=== PATIENT | female | born 2000 | race Asian ===

== ENCOUNTER 2021-11-15 08:36 | Emergency (ER) | payer OTHER, SELFPAY ==
[2021-11-15 09:00] VITALS: BP 144/88; PULSE 81; RESP 18; TEMP 36.6; O2SAT 100
--- NOTE | 2021-11-15 09:17 | ED.EAR ---
HPI - Ear Problem General Chief complaint: Ear Stated complaint: Ear Pain Time Seen by Provider: 11/15/21 09:17 Source: patient Mode of arrival: ambulatory Limitations: no limitations History of Present Illness HPI Narrative: 21-year-old female presents with complaint of right ear pain since yesterday. Reports pain getting progressively worse. Reports she has had some allergy and sinus issues over the past 2 weeks that she was taking [id number] sinus medicine for and that had resolved. Denies fever chills. All systems reviewed and negative except as noted above. Related Data Allergies Allergy/AdvReac Type Severity Reaction Status Date / Time No Known Allergies Allergy Mild Unverified 11/15/21 09:03 Review of Systems Review of Systems: CONSTITUTIONAL: Denies fever, chills, or sweats. EYES: Denies visual changes, redness, or discharge. ENT: Denies rhinorrhea, congestion, sore throat. Reports right ear pain. CARDIOVASCULAR: Denies chest pain, palpitations, or edema. RESPIRATORY: Denies cough or dyspnea. GASTROINTESTINAL: Denies abdominal pain, nausea, vomiting, or diarrhea. GENITOURINARY: Denies dysuria or hematuria. SKIN: Denies rash or itching. MUSCULOSKELETAL: Denies back pain, joint pain, or myalgia. NEUROLOGIC: Denies headache, numbness, or weakness. PSYCHIATRIC: Denies anxiety or depression. All other systems reviewed are negative, except as documented in HPI. PMFSH Comments At time of signature, agree with nursing past medical, surgical, social and family history. There is no relevant family history pertinent to the presenting complaint. Exam Narrative: GENERAL: This is a well-nourished, well-developed patient, in no apparent distress. HEAD: normocephalic, atraumatic. EYES: PERRL. Sclera clear/white. Vision is grossly intact. EARS: External ears normal, auditory canals clear and without drainage. Right TM is erythematous and retracted. No perforation. NOSE: External nose normal with no obvious nasal discharge, nares without redness, no rhinorrhea. NECK: Neck supple, non-tender without lymphadenopathy, masses or thyromegaly. CARDIOVASCULAR: Regular rate and rhythm without murmurs, gallops, or rubs. RESPIRATORY: Clear to auscultation. Breath sounds equal bilaterally. No wheezes, rales, or rhonchi. SKIN: warm, Dry, intact with no suspicious lesions or rash, good texture and turgor. NEURO: awake, alert, and oriented to person, place and time. There were no obvious focal neurologic abnormalities. EXTREMITIES: Normal range of motion to all extremities. Course Course Level of Care: Express Care Visit Vital Signs Vital signs: Vital Signs Temperature 36.6 C 11/15/21 09:00 Pulse Rate 81 11/15/21 09:00 Respiratory Rate 18 11/15/21 09:00 Blood Pressure 144/88 H 11/15/21 09:00 Pulse Oximetry 100 11/15/21 09:00 Oxygen Delivery Room Air 11/15/21 09:00 Temperature 36.6 C 11/15/21 09:00 Pulse Rate 81 11/15/21 09:00 Respiratory Rate 18 11/15/21 09:00 Blood Pressure 144/88 H 11/15/21 09:00 Pulse Oximetry 100 11/15/21 09:00 Oxygen Delivery Room Air 11/15/21 09:00 Reviewed Medical Decision Making MDM Narrative Medical decision making narrative: Patient is aware of diagnosis, understands and agrees to treatment plan. Anticipatory guidance given. Patient agrees to follow-up as directed and is aware of reasons to seek care at the emergency department. Portions of this record may have been created with voice recognition software Vital Signs Vital Signs: Vital Signs Temperature 36.6 C 11/15/21 09:00 Pulse Rate 81 11/15/21 09:00 Respiratory Rate 18 11/15/21 09:00 Blood Pressure 144/88 H 11/15/21 09:00 Pulse Oximetry 100 11/15/21 09:00 Oxygen Delivery Room Air 11/15/21 09:00 Temperature 36.6 C 11/15/21 09:00 Pulse Rate 81 11/15/21 09:00 Respiratory Rate 18 11/15/21 09:00 Blood Pressure 144/88 H 11/15/21 09:00 Pulse Oximetry 100
== END 2021-11-15 09:30 | disposition home or self-care (01) ==
PROVIDERS: Emergency Provider Nurse Practitioner Family
DX: H66.91 Otitis media, unspecified, right ear (principal)
CPT/HCPCS: 99213; G0463